=== PATIENT | female | born 1955 | race Caucasian/White ===

== ENCOUNTER → 2017-06-27 | Outpatient (CLI) | payer OTHER ==
--- NOTE | 2017-06-30 12:12 | PCVCINTER ---
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 [facility] Brief description of procedure: After informed consent was obtained the patient was brought to the [facility] vascular holding area. The chest was prepped and draped in usual sterile manner. Utilizing 1% lidocaine the skin was instilled and a pattern of installation subcutaneously was carried forth along the course of the proposed implantation. Using a standard blade incision was made and using both sharp and blunt dissection a channel was identified through the previously anesthetized region. A Biotronik implantable loop recorder was then inserted without complications. The subcutaneous tissue was then sewn with 2 simple interrupted nonabsorbable sutures. The skin was then closed after hemostasis obtained with a 3-0 running subcuticular stitch. Steri-Strips 4 x [address] No complications. EBL: 0 Conclusion
== END | disposition home or self-care (01) ==
LOC: PCVCINTER 10:38
PROVIDERS: ATTEND Internal Medicine
DX: R00.2 Palpitations (principal)
CPT/HCPCS: 33282; C1764

== ENCOUNTER → 2017-07-12 | Outpatient (CLI) | payer OTHER | END | disposition home or self-care (01) | LOC: PCVCCLINIC 15:01 | PROVIDERS: ATTEND Internal Medicine | DX: R55 Syncope and collapse (principal); I95.9 Hypotension, unspecified; M79.7 Fibromyalgia; Z79.82 Long term (current) use of aspirin; Z79.899 Other long term (current) drug therapy | CPT/HCPCS: 93005; G0463 ==

== ENCOUNTER → 2018-01-17 | Outpatient (CLI) | payer OTHER | END | disposition home or self-care (01) | LOC: PCVCCLINIC 10:06 | DX: E78.5 Hyperlipidemia, unspecified (principal); R55 Syncope and collapse; I95.9 Hypotension, unspecified; Z79.82 Long term (current) use of aspirin; Z79.899 Other long term (current) drug therapy | CPT/HCPCS: 80061; 93005; G0463 ==

== ENCOUNTER → 2018-03-27 | Outpatient (CLI) | payer OTHER | END | disposition home or self-care (01) | LOC: PCVCCLINIC 10:38 | DX: E78.5 Hyperlipidemia, unspecified (principal) | CPT/HCPCS: 80061 ==

== ENCOUNTER → 2018-07-31 | Outpatient (CLI) | payer OTHER | END | disposition home or self-care (01) | LOC: PCVCCLINIC 14:03 | PROVIDERS: ATTEND Internal Medicine | DX: E78.5 Hyperlipidemia, unspecified (principal) | CPT/HCPCS: 80061 ==

== ENCOUNTER → 2018-09-05 | Outpatient (CLI) | payer OTHER ==
[~2018-09-05] MED LIST: LIDOCAINE 1%/EPI 1:100,000 20 ML VIAL. ONE
--- NOTE | 2018-09-05 14:47 | PCVCINTER ---
APPROVED REPORT Patient Location: Out-Patient Room #: Stress Nurse: Procedure: Removal of a Biotronik implantable loop recorder Indications: Identification of arrhythmias with development of significant patient discomfort from device Brief description of procedure: After informed consent was obtained the patient was brought to the cardiac catheterization laboratory prep and hold. The chest was prepped and usual sterile manner and draped sterilely. Utilizing 1% lidocaine with epinephrine the region of proposed symptoms incision was instilled as was the area adjacent to the device and within the capsule. Utilizing a 11 blade an incision was made and taken down to the device capsule. Using both blunt and sharp dissection the device was identified and the capsule opened. The device was subsequently delivered without complications. The deep tissue was and capsular area was obliterated with a [id number] stitch. The skin was closed with a running subcuticular 3-0 absorbable suture. Skin was then reinforced with Steri-Strips sterile 4 x 4 OpSite was then placed. We can tolerate procedure well there were no complications. EBL: 0 Sedation: None Conclusion
== END | disposition home or self-care (01) ==
LOC: PCVCINTER 11:36
PROVIDERS: ATTEND Internal Medicine
DX: Z45.09 Encounter for adjustment and management of other cardiac device (principal)
CPT/HCPCS: 33284; J3490

== ENCOUNTER → 2019-09-25 | Outpatient (CLI) | payer OTHER | END | disposition home or self-care (01) | LOC: PCVCCLINIC 15:38 | PROVIDERS: ATTEND Internal Medicine | DX: E78.5 Hyperlipidemia, unspecified (principal); I95.9 Hypotension, unspecified; K21.9 Gastro-esophageal reflux disease without esophagitis; K59.09 Other constipation; Z79.82 Long term (current) use of aspirin; Z79.899 Other long term (current) drug therapy; Z88.8 Allergy status to other drugs, medicaments and biological substances; Z88.4 Allergy status to anesthetic agent | CPT/HCPCS: 36415; 80061; 93005; G0463 ==